=== PATIENT | female | born 1985 | race Caucasian/White ===

== ENCOUNTER 2016-04-30 08:55 | Emergency (ER) | payer SELFPAY ==
[~2016-04-30] VITALS: Ht 165.1 cm; Wt 96.1 kg
[~2016-04-30 08:55] MED LIST: AMPH10TA2 PO; AMPH30CA3 PO; IBUP-103 PO
[2016-04-30 08:58] VITALS: TEMP 36.7; Ht 165.1 cm; Wt 96.1 kg
[2016-04-30] MEDS ORDERED: MULTTAB58 PO (09:14)
[2016-04-30] MEDS ORDERED: XYLOCAINE 1%/SOD BICARB 20 ML VIAL INFIL ONE (09:30)
[2016-04-30] MEDS ORDERED: OXYC1TAB3 PO (09:49)
[2016-04-30] MEDS ORDERED: CEPH500C PO (09:49)
[2016-04-30] MEDS ORDERED: SULF800T23 PO (09:49)
[2016-04-30 10:20] VITALS: BP 141/91; PULSE 99; O2SAT 100
--- NOTE | 2016-04-30 11:25 | EMERGENCY ROOM VISIT NOTE ---
History First contact with patient: 09:01 Chief Complaint: WOUND INFECTION Stated Complaint: ABSCESS ON LEFT THIGH Nursing Triage Summary: pt has abscess on left inner thigh approx size of silver dollar with redness approx 8-12 inches round History of Present Illness The patient is a 31 year old female who presents to the Emergency Room with complaints of a left inner thigh infection. The patient reports that she noticed swelling and discomfort 3 days ago. She did notice some drainage from the center of the wound yesterday. She reports that the skin has been irritated as well. She reports fatigue, but has not noticed any fever or chills. She rates her discomfort a 6 out of 10. The patient reports that she did have a buttock abscess drained approximately 2 months ago. She denies any prior history of antibiotic resistant infections. Review of Systems 10 system review was performed and was negative except for pertinent positives and negatives as indicated in history of present illness Past Medical/Surgical History Medical Problems: (1) Acute bronchitis (2) ADD (attention deficit disorder) (3) Altered mental status (4) Altered mental status (5) Back pain (6) Back pain (7) Back strain (8) Bronchitis (9) Bronchitis, acute (10) Need for tetanus booster (11) Paresthesias (12) Pharyngitis (13) Puncture wound of foot (14) Spasm of back muscles (15) Tachycardia Family History FHx: cancer FHx: diabetes FHx: gallbladder disease FHx: heart disease FHx: hypertension FHx: lung disease Social History Smoking Status: Former Smoker Alcohol Use: none Marital Status: single, in relationship Housing Status: lives with family Occupation Status: employed Current/Historical Medications Scheduled Amphetamine-Dextroamphetamine 10MG (Adderall 10MG), 10 MG PO BID Amphetamine-Dextroamphetamine 30MG (Adderall Xr 30MG), 30 MG PO QAM Cephalexin Monohydrate (Keflex), 500 MG PO QID Multiple Vitamin (Multivitamin), 1 TAB PO DAILY Sulfa/Trimethoprim (Bactrim Ds 800MG/160MG), 1 TAB PO BID Scheduled PRN Ibuprofen Tab (Advil), 600 MG PO Q4H PRN for Pain Oxycodone Ir (Roxicodone Ir), 1-2 TAB PO Q4H PRN for Pain Allergies Coded Allergies: Aluminum (Verified Allergy, Severe, ITCH, RASH, 04/30/16) Nickel (Verified Allergy, Severe, ITCH RASH, 04/30/16) Morphine (Unverified Allergy, Mild, LOCAL REACTION OF SWELLING AND ITCHING AT INJECTION SITE, 04/30/16) Physical Exam Vital Signs Date Time Temp Pulse Resp B/P Pulse Ox O2 Delivery O2 Flow Rate FiO2 04/30/16 10:20 99 18 141/91 100 04/30/16 08:58 36.7 98 18 136/82 99 Room Air Pain Rating (0-10): 4.0 Physical Exam CONSTITUTIONAL: Healthy and well nourished. Alert and oriented X 3 with positive affect. HEENT: Normocephalic, atraumatic. Pupils equal, round and reactive. NECK: Full active range of motion without discomfort. RESPIRATORY: Clear to auscultation bilaterally with no wheezing, crackles, rhonchi or stridor. CARDIOVASCULAR: Regular rate and rhythm with no murmurs, rubs or gallops. MUSCULOSKELETAL: Examination of the left anteromedial thigh shows a large area of induration with mild purulent drainage centrally. There is a small area of fluctuance. The patient otherwise has no discomfort with internal or external rotation of the hip. Distal pulses are intact. INTEGUMENTARY: No rash or other significant dermatologic conditions noted. NEUROLOGIC: No focal neurologic deficits noted. Medical Decision & Procedures Medications Administered Medications (Trade) Dose Ordered Sig/Deonna Route Start Time Stop Time Status Last Admin Dose Admin Lidocaine HCl (Buffered Lidocaine 1% Inj) 20 ml NOW ONCE INFIL 04/30/16 09:30 04/30/16 09:37 DC 04/30/16 09:30 20 ML Procedure I&D procedure was recommended given that the patient has a large amount of swelling and minimal purulent drainage. Patient did provide verbal consent for this procedure under local anesthesia. I&D procedure was performed in our physician assistant manager quality management student under my direct supervision. Using buffered 1% lidocaine without epinephrine, good local anesthesia was administered around the central area of drainage. Sterile field was created. Using a #11 scalpel, a 1 cm incision was made. The patient did have a mild purulent drainage estimated at approximately 2 mL. A few underlying loculations were further opened with needle drivers, then the wound was irrigated with normal saline. 0.25 inch packing was then loosely placed in all reachable recesses of the abscess. Bacitracin dressing was then applied. Patient tolerated the procedure well. ED Course Patient history and physical exam were performed. Nurse's notes were reviewed. I&D procedure was performed under local anesthesia. Cultures were collected. The patient will be initially treated with Keflex and Bactrim DS antibiotics. She was provided a prescription for OxyIR 5 mg as needed for pain. She may also alternate ibuprofen and Tylenol for baseline pain relief. She was instructed to remove the packing in 48 hours, or return to the emergency department if desired. Return for any progressively worsening infection, swelling or pain. The patient was happy with plan of care, voiced understanding of all discharge instructions, and rated her pain a 4 out of 10 at the time of discharge. Medical Decision Impression Primary Impression: Abscess of left thigh Departure Information Dispostion Home / Self-Care Condition GOOD Prescriptions Oxycodone Ir (Roxicodone Ir) 5 Mg Tab 1-2 TAB PO Q4H Y for Pain, #10 TAB For Initial Treatment Prov: Shaquille Ladd PA 04/30/16 Sulfa/Trimethoprim (Bactrim Ds 800MG/160MG) Tab 1 TAB PO BID for 7 Days, #14 TAB Prov: Shaquille Ladd PA 04/30/16 Cephalexin Monohydrate (Keflex) 500 Mg Cap 500 MG PO QID for 7 Days, #28 CAP Prov: Shaquille Ladd PA 04/30/16 Forms HOME CARE DOCUMENTATION FORM, IMPORTANT VISIT INFORMATION Patient Instructions My [facility] Additional Instructions Complete all Keflex and Bactrim DS antibiotics as prescribed. Remove packing in 48 hours, or return to the emergency department for packing removal. Keep wound clean and covered with an antibiotic ointment and dressing until the wound heals. Ibuprofen 800 mg and/or Tylenol 1000 mg every 8 hours. You may also alternate these medications for more effective pain relief: Ibuprofen --4 HRS--> Tylenol --4 HRS--> ibuprofen --4 HRS--> Tylenol .... OxyIR if needed for worse pain. Do not drink or drive while taking OxyIR. Follow-up with your family doctor as needed for further wound management.
--- NOTE | 2016-05-02 17:15 | Pharmacy Progress Note ---
ED Pharmacist Culture FollowUp Date of Service: May 02, 2016. Patient was sent home with a prescription for Keflex and Bactrim, which should both cover the MSSA growing from the patient's abscess/thigh culture. Patient was seen in follow-up on 05/02/16 and instructed to stop the Keflex and continue the Bactrim. No further intervention required.
== END 2016-04-30 10:21 | disposition home or self-care (01) ==
LOC: C.EDB 08:56
DX: L02.415 Cutaneous abscess of right lower limb (principal); F90.9 Attention-deficit hyperactivity disorder, unspecified type; Z79.899 Other long term (current) drug therapy; Z87.891 Personal history of nicotine dependence; Z80.9 Family history of malignant neoplasm, unspecified; Z83.3 Family history of diabetes mellitus; Z83.79 Family history of other diseases of the digestive system; Z82.49 Family history of ischemic heart disease and other diseases of the circulatory system

== ENCOUNTER 2016-05-02 16:26 | Emergency (ER) | payer SELFPAY ==
[~2016-05-02] VITALS: Ht 165.1 cm; Wt 95.0 kg
[~2016-05-02 16:26] MED LIST changes: +CEPH500C PO; +MULTTAB58 PO; +OXYC1TAB3 PO; +SULF800T23 PO
[2016-05-02 16:29] VITALS: BP 138/88; PULSE 112; TEMP 36.4; O2SAT 100; Ht 165.1 cm; Wt 95.0 kg
--- NOTE | 2016-05-02 18:28 | EMERGENCY ROOM VISIT NOTE ---
History First contact with patient: 16:32 Chief Complaint: PACKING REMOVAL Stated Complaint: ABSCESS PACKING NEEDS REMOVED History of Present Illness The patient is a 31 year old female who returns to the Emergency Room after having a left inner thigh abscess I&D and packing approximately 48 hours ago. The patient does report decreasing pain and swelling. She denies any fevers or chills. She denies any pain at this time. The patient has not noticed any significant drainage from the wound. Review of Systems 6 system review was performed and was negative except for pertinent positives and negatives as indicated in history of present illness Past Medical/Surgical History Medical Problems: (1) Acute bronchitis (2) ADD (attention deficit disorder) (3) Altered mental status (4) Altered mental status (5) Back pain (6) Back pain (7) Back strain (8) Bronchitis (9) Bronchitis, acute (10) Need for tetanus booster (11) Paresthesias (12) Pharyngitis (13) Puncture wound of foot (14) Spasm of back muscles (15) Tachycardia Family History FHx: cancer FHx: diabetes FHx: gallbladder disease FHx: heart disease FHx: hypertension FHx: lung disease Social History Smoking Status: Former Smoker Alcohol Use: none Marital Status: single, in relationship Housing Status: lives with family Occupation Status: employed Current/Historical Medications Scheduled Amphetamine-Dextroamphetamine 10MG (Adderall 10MG), 10 MG PO BID Amphetamine-Dextroamphetamine 30MG (Adderall Xr 30MG), 30 MG PO QAM Multiple Vitamin (Multivitamin), 1 TAB PO DAILY Scheduled PRN Ibuprofen Tab (Advil), 600 MG PO Q4H PRN for Pain Oxycodone Ir (Roxicodone Ir), 1-2 TAB PO Q4H PRN for Pain Allergies Coded Allergies: Aluminum (Verified Allergy, Severe, ITCH, RASH, 05/02/16) Nickel (Verified Allergy, Severe, ITCH RASH, 05/02/16) Morphine (Unverified Allergy, Mild, LOCAL REACTION OF SWELLING AND ITCHING AT INJECTION SITE, 05/02/16) Cephalexin (Unverified Allergy, Unknown, HIVES, 05/02/16) Physical Exam Vital Signs Date Time Temp Pulse Resp B/P Pulse Ox O2 Delivery O2 Flow Rate FiO2 05/02/16 16:29 36.4 112 18 138/88 100 Room Air Physical Exam CONSTITUTIONAL: Healthy and well nourished. Alert and oriented X 3 with positive affect. She does not appear in any acute distress. HEENT: Normocephalic, atraumatic. Pupils equal, round and reactive. MUSCULOSKELETAL: Examination of the left inner thigh shows improving appearance compared to my evaluation 2 days ago. Packing is still in place. There is no significant purulent drainage on the outer 4 x 4 gauze. Packing was removed with no additional purulent drainage. Distal pulses are intact. Negative logroll. INTEGUMENTARY: No rash or other significant dermatologic conditions noted. NEUROLOGIC: No focal neurologic deficits noted. Medical Decision & Procedures ED Course Patient history and physical exam were performed. Nurse's notes were reviewed. Vital signs were reviewed and were normal. I did review wound culture showing a methicillin susceptible staph aureus infection. I also spoke with our clinical pharmacist who suggested stopping the Keflex and continuing with Bactrim DS antibiotics. Upon further questioning, the patient admits that she has only taken 2 doses of Keflex over the past 24 hours, and has developed a mild rash. I suspect that this could be Keflex allergy. The patient was instructed to continue with Bactrim DS twice daily for the next 6-7 days as previously prescribed. Ibuprofen or Tylenol as needed for pain. She was encouraged to follow-up with her PCP as needed for further wound management, otherwise return to the emergency department for any progressively worsening swelling, pain or developing fever. The patient was happy with plan of care, voiced understanding of all discharge instructions, and denied any pain at the time of discharge. Medical Decision Impression Primary Impression: Abscess of left thigh Departure Information Dispostion Home / Self-Care Condition FAIR Forms HOME CARE DOCUMENTATION FORM, IMPORTANT VISIT INFORMATION Patient Instructions My [facility] Additional Instructions Stop the Keflex antibiotics, and continue/finish the Bactrim DS antibiotics as previously prescribed. Irrigate the wound twice daily with provided syringe. Suggest follow-up with your family doctor in 3-5 days for wound recheck. Return to the emergency department for any worsening appearance, pain or fever.
== END 2016-05-02 16:56 | disposition home or self-care (01) ==
LOC: C.EDB 16:27 → C.EDD 16:56
DX: L02.416 Cutaneous abscess of left lower limb (principal); Z48.00 Encounter for change or removal of nonsurgical wound dressing; F90.9 Attention-deficit hyperactivity disorder, unspecified type; Z87.891 Personal history of nicotine dependence; Z79.899 Other long term (current) drug therapy